=== PATIENT | female | born 1965 | race Caucasian/White ===

== ENCOUNTER → 2020-09-20 | Emergency (ER) | payer OTHER ==
[~2020-09-20] VITALS: Ht 167.6 cm; Wt 104.3 kg
[2020-09-20 19:04] VITALS: BP 166/100
--- NOTE | 2020-09-20 19:47 | NUR ---
PT REFUSED TO BE SEEN BY OLGA KUMAR, PT ESCORTED OUT TO WAITING ROOM VIA SECURITY PER PT REQUEST. RISK AND BENEBFITS EXPLAINED X3. PT CONTINUES TO REFUSE CARE. PT AMBULATORY WITH PERSONAL WALKER.
== END | disposition still patient (30) ==
LOC: ER 19:03
DX: Z53.21 Procedure and treatment not carried out due to patient leaving prior to being seen by health care provider (principal); R53.1 Weakness; I10 Essential (primary) hypertension

== ENCOUNTER 2020-09-21 07:38 | Emergency (ER) | payer OTHER ==
--- NOTE | 2020-09-21 07:45 | NUR ---
Called No response NOT in Wating Room
--- NOTE | 2020-09-21 08:00 | NUR ---
Called No response NOT in Wating Room
--- NOTE | 2020-09-21 08:36 | NUR ---
Called No response NOT in Wating Room Eloped Dr Neumann made aware
== END 2020-09-21 08:38 | disposition left against medical advice (07) ==
LOC: ER 07:42
DX: Z53.21 Procedure and treatment not carried out due to patient leaving prior to being seen by health care provider (principal)